=== PATIENT | male | born 1980 | race Hispanic/Latino ===

== ENCOUNTER 2017-08-05 15:08 | Emergency (ER) | payer SELFPAY ==
[2017-08-05 15:34] LABS: #Eosinphils 0.2 thou/uL (0.0-0.7); #Lymphocytes 2.1 thou/uL (1.20-3.40); #Monocytes 0.9 thou/uL (0.11-0.59); #Neutrophils 8.8 thou/uL (1.40-6.50); %Basophils 0.1 % (0.0-1.0); %Eosinophils 1.5 % (0.0-10.0); %Lymphocytes 17.2 % (21.0-51.0); %Monocytes 7.5 % (0.0-10.0); Hematocrit 41.7 % (42.0-52.0); Red Blood Cell (RBC) Count 4.18 mill/uL (4.70-6.10); White Blood Cell (WBC) Count 11.9 thou/uL (4.8-10.8)
[2017-08-05 15:52] LABS: Anion Gap 9 mmol/L (10-20); BUN (Urea Nitrogen) 8 mg/dL (8.9-20.6); Calc. Creatinine Clearance 0 mL/min (70-130); Calcium 9.5 mg/dL (7.8-10.44); Carbon Dioxide 28 mmol/L (22-29); Chloride 110 mmol/L (98-107); Estimated GFR-MDRD 74
[2017-08-05] MEDS ORDERED: Morphine 4 MG/ML VIAL ONE (16:45)
--- NOTE | 2017-08-05 17:03 | CT ---
CT FACE WITHOUT CONTRAST: 08/05/17 HISTORY: Injury. Trauma. Left facial swelling after hitting a wall. COMPARISON: None. FINDINGS: There are likely old nasal bone fractures bilaterally. Likely an old right lamina papyracea fracture. There is extensive mucosal soft tissue thickening in the left maxillary sinus. The bilateral central incisors are cracked with only roots remaining. The bilateral lateral incisors as well as canine teeth are missing. No orbital floor blowout fracture. The pterygoid plates, zygoma, zygomatic arch are all intact. Left periorbital soft tissue swelling. Orbits themselves are normal. Globes are normal. No retrobulbar hematoma. IMPRESSION: 1. Fractures of the bilateral central incisor maxillary teeth with only roots remaining. 2. Missing bilateral lateral incisors and canine teeth of the maxilla. 3. Left periorbital soft tissue swelling and contusion. 4. The alveolar bone of the maxilla has a small chip fracture, series 401, image 37 at the level of the left maxillary lateral incisor. 5. Likely old nasal bone fractures and right lamina papyracea fracture. POS: HOME
== END 2017-08-05 17:35 | disposition home or self-care (01) ==
LOC: ERS 15:08
DX: S02.5XXA Fracture of tooth (traumatic), initial encounter for closed fracture (principal); S00.83XA Contusion of other part of head, initial encounter; G20 Parkinson's disease; F17.210 Nicotine dependence, cigarettes, uncomplicated; W22.01XA Walked into wall, initial encounter
CPT/HCPCS: 36415; 70486; 80048; 85025; 96372; J2270

== ENCOUNTER 2017-12-24 04:56 | Emergency (ER) | payer SELFPAY ==
[2017-12-24 05:39] LABS: Lavender RECEIVED; Red RECEIVED
[2017-12-24] MEDS ORDERED: levETIRAcetam In NaCl (Iso-Os) 1,000 MG in Premix Bag 1 BAG IVPB SCH (05:45)
[2017-12-24 05:46] LABS: #Basophils 0.1 thou/uL (0.0-0.2); #Eosinphils 0.3 thou/uL (0.0-0.7); #Lymphocytes 2.8 thou/uL (1.20-3.40); #Monocytes 0.7 thou/uL (0.11-0.59); #Neutrophils 6.6 thou/uL (1.40-6.50); %Eosinophils 3.2 % (0.0-10.0); %Lymphocytes 26.3 % (21.0-51.0); %Monocytes 6.6 % (0.0-10.0); %Neutrophils 62.9 % (42.0-75.0); Hemoglobin 14.9 g/dL (14.0-18.0); Mean Corpuscular HGB CONC 34.8 g/dL (32.0-36.0); Mean Corpuscular Hemoglobin 32.9 pg (27.0-31.0); Mean Corpuscular Volume 94.4 fl (80.0-94.0); Mean Platelet Volume 9.7 fL (7.4-10.4); Platelet Count 138 thou/uL (130-400); RBC Distribution Width 12.2 % (11.5-14.5); Red Blood Cell (RBC) Count 4.52 mill/uL (4.70-6.10); White Blood Cell (WBC) Count 10.5 thou/uL (4.8-10.8)
[2017-12-24] MEDS ORDERED: Ketorolac Tromethamine 30 MG/ML VIAL ONE (05:53)
[2017-12-24 06:07] LABS: ALT (SGPT) 30 U/L (8-55); AST (SGOT) 14 U/L (5-34); Albumin 4.1 g/dL (3.5-5.0); Alkaline Phosphatase 85 U/L (40-150); Anion Gap 11 mmol/L (10-20); BUN (Urea Nitrogen) 15 mg/dL (8.9-20.6); Bilirubin, Total 0.6 mg/dL (0.2-1.2); CK (CPK) 235 U/L (30-200); Calc. Creatinine Clearance 0 mL/min (70-130); Calcium 8.7 mg/dL (7.8-10.44); Carbon Dioxide 21 mmol/L (22-29); Chloride 110 mmol/L (98-107); Estimated GFR-MDRD Greater than 90; Globulin 2.8 g/dL (2.4-3.5); Glucose 93 mg/dL (70-105); Magnesium 2.2 mg/dL (1.6-2.6); Potassium 3.6 mmol/L (3.5-5.1); Protein, Total 6.9 g/dL (6.0-8.3)
[2017-12-24 06:24] LABS: Sodium 138 mmol/L (136-145)
--- NOTE | 2017-12-24 13:39 | CT ---
PRELIMINARY REPORT/[facility]/EMERGENTY AFTER-HOURS PROCEDURE CT Head Without Intravenous Contrast EXAM DATE/TIME: Exam ordered 12/24/2017 5:58 AM CLINICAL HISTORY: 37 years old, male; Signs and symptoms; Weakness, extremity; Patient HX: 37 y/o m with presentation o f seizure. Pt reports that he is on 500mg keppra bid and forgot to take his pm dose. Pt states that kyrie horne was sleeping and woke up on the floor. He states "my dog woke me up" and reports that he normally had generalized tremors after he has a seizure. Pt reports pain at the left side of his head and denies any other complaints. Denies drug/etoh use. HX of parkinson's dz. TECHNIQUE: Axial computed tomography images of the head/brain without intravenous contrast. COMPARISON: No relevant prior studies available. FINDINGS: Brain: Normal. No hemorrhage. No significant white matter disease. No edema. Ventricles: Normal. No ventriculomegaly. Bones/joints: Normal. No acute fracture. Soft tissues: Normal. Sinuses: Unremarkable as visualized. No acute sinusitis. Mastoid air cells: Unremarkable as visualized. No mastoid effusion. IMPRESSION: No acute intracranial hemorrhage. Thank you for allowing us to participate in the care of your patient. Dictated and Authenticated by: Robert Long MD 12/24/2017 6:28 AM Central Time ([place] & [place]) FINAL REPORT EMERGENT AFTER HOURS NONCONTRAST CT HEAD: DATE: 12/24/17. HISTORY: Headache and seizure. COMPARISON: 11/10/16. IMPRESSION: 1. No acute intracranial abnormality is demonstrated. CT head is stable from prior exam. 2. Findings are in agreement with the preliminary report by [facility]. POS: [facility]
== END 2017-12-24 07:04 | disposition home or self-care (01) ==
LOC: ERS 04:56
DX: G40.909 Epilepsy, unspecified, not intractable, without status epilepticus (principal); Z91.14 Patient's other noncompliance with medication regimen; G20 Parkinson's disease; F17.210 Nicotine dependence, cigarettes, uncomplicated; Z71.6 Tobacco abuse counseling; Z79.899 Other long term (current) drug therapy
CPT/HCPCS: 36415; 70450; 80053; 82550; 83735; 85025; 96365; 96375; 99406; J1885; J1953

== ENCOUNTER 2018-03-16 08:09 | Outpatient (CLI) | payer OTHER ==
[2018-03-16] MEDS ORDERED: EPINEPHrine 1 MG/ML AMP ONE (08:50)
[2018-03-16] MEDS ORDERED: Iopamidol 300 61% 50 ML VIAL FS ONE (08:50)
[2018-03-16] MEDS ORDERED: Gadobenate Dimeglumine 529 MG/1 ML (20ML VIAL) ONE (08:50)
[2018-03-16] MEDS ORDERED: Lidocaine 1% PF 10 ML AMP ONE (08:50)
--- NOTE | 2018-03-16 12:58 | RAD ---
RIGHT SHOULDER ARTHROGRAM: HISTORY: Right shoulder pain. Internal derangement. FINDINGS: After explaining the procedure and answering all questions, the anterior aspect of the right shoulder was prepped and draped in the usual sterile fashion. Sterile technique, buffered local anesthesia, fluoroscopic guidance, and an anterior approach were used to carefully advance a 22 gauge spinal need le into the joint capsule, at the level of the humeral head. A total volume of a 10 mL liquid mixtur e containing normal saline, 1% Lidocaine, iodinated contrast, and small amounts of Gadolinium and epi nephrine were then instilled into the joint capsule, under fluoroscopic control. The needle was jesse manuel, and spot images were obtained. The patient tolerated the procedure well and was transferred to the MRI area in good condition for further imaging. FLUOROSCOPY TIME: 0.5 minutes. IMPRESSION: Technically successful right shoulder arthrogram, revealing a full-thickness rotator cuff tear. Post arthrogram MRI is pending. POS: [facility]
--- NOTE | 2018-03-16 15:14 | MRI ---
MRI RIGHT SHOULDER PERFORMED WITH CONTRAST ENHANCEMENT: HISTORY: Right shoulder pain. FINDINGS: There is good opacification of the joint space. There are some moderate AC joint hypertrophic change s, with a slightly laterally downsloping acromion. There is a full-thickness, partially-width supraspinatus tendon tear. This involves more of the ante rior aspect of the tendon. Some of the anterior-most articular-sided fibers are still intact, but th e tendon is overall retracted by approximately 9 mm, and the AP dimension of the full-thickness compo nent of this tear is approximately 7 to 8 mm. There appears to be a slightly more significant unders urface retraction of the articular-sided fibers. There are tendinopathy changes of the more posterio r fibers of the supraspinatus tendon. The infraspinatus appears to be intact. The subscapularis muscle and tendon are intact, and the biceps tendon appears to be in normal positio n within the bicipital groove. There is a small SLAP type lesion seen involving the posterior-superior labrum, and there does appear to be a sulcus present, but the contrast extends further posteriorly than would be typically seen wi th a sulcus. The inferior glenohumeral ligament is intact. IMPRESSION: 1. Full-thickness, partial-width, supraspinatus tendon tear. This appears to be an almost complete tear of the supraspinatus tendon. There appear to be a few bursal fibers still intact anteriorly, an d some of the posterior fibers appear very tendinopic but appear intact. 2. Small superior labrum anterior and posterior type tear of the posterior-superior labrum, which ap pears to be associated with a sublabral sulcus. POS: [facility]
== END 2018-03-16 08:10 | disposition home or self-care (01) ==
LOC: RAD 08:09
PROVIDERS: ATTEND Orthopaedic Surgery
DX: M25.511 Pain in right shoulder (principal); M75.101 Unspecified rotator cuff tear or rupture of right shoulder, not specified as traumatic
CPT/HCPCS: 23350

== ENCOUNTER 2018-08-26 01:21 | Emergency (ER) | payer SELFPAY ==
[2018-08-26] MEDS ORDERED: Ketorolac Tromethamine 30 MG/ML VIAL ONE (02:19)
== END 2018-08-26 02:40 | disposition home or self-care (01) ==
LOC: ERS 01:21
DX: K02.9 Dental caries, unspecified (principal); G20 Parkinson's disease; F17.210 Nicotine dependence, cigarettes, uncomplicated; Z79.899 Other long term (current) drug therapy
CPT/HCPCS: 96372; J1885

== ENCOUNTER 2018-08-31 01:37 | Emergency (ER) | payer SELFPAY ==
[2018-08-31 02:04] LABS: #Basophils 0.1 thou/uL (0.0-0.2); #Eosinphils 0.1 thou/uL (0.0-0.7); #Lymphocytes 2.4 thou/uL (1.20-3.40); #Monocytes 0.8 thou/uL (0.11-0.59); #Neutrophils 8.8 thou/uL (1.40-6.50); %Basophils 0.5 % (0.0-1.0); %Eosinophils 1.1 % (0.0-10.0); %Lymphocytes 19.5 % (21.0-51.0); %Monocytes 6.3 % (0.0-10.0); %Neutrophils 72.6 % (42.0-75.0); Hemoglobin 14.7 g/dL (14.0-18.0); Mean Corpuscular HGB CONC 33.6 g/dL (32.0-36.0); Mean Corpuscular Hemoglobin 31.5 pg (27.0-31.0); Mean Corpuscular Volume 93.9 fL (78.0-98.0); Mean Platelet Volume 9.7 fL (7.4-10.4); Platelet Count 151 thou/uL (130-400); RBC Distribution Width 13.2 % (11.5-14.5); Red Blood Cell (RBC) Count 4.67 mill/uL (4.70-6.10); White Blood Cell (WBC) Count 12.1 thou/uL (4.8-10.8)
[2018-08-31 02:26] LABS: ALT (SGPT) 31 U/L (8-55); AST (SGOT) 24 U/L (5-34); Alkaline Phosphatase 81 U/L (40-150); Anion Gap 13 mmol/L (10-20); BUN (Urea Nitrogen) 15 mg/dL (8.9-20.6); Bilirubin, Total 0.5 mg/dL (0.2-1.2); CK (CPK) 640 U/L (30-200); Calc. Creatinine Clearance 0 mL/min (70-130); Calcium 8.9 mg/dL (7.8-10.44); Carbon Dioxide 18 mmol/L (22-29); Chloride 113 mmol/L (98-107); Estimated GFR-MDRD 69; Globulin 2.8 g/dL (2.4-3.5); Glucose 96 mg/dL (70-105); Potassium 3.8 mmol/L (3.5-5.1); Protein, Total 6.8 g/dL (6.0-8.3); Sodium 140 mmol/L (136-145)
[2018-08-31 02:34] LABS: Alcohol Less than 10 mg/dL (Less than 10); Salicylate Less than 8.0 mg/dL (15.0-30.0)
[2018-08-31 02:36] LABS: Amphetamine Not Detected (NotDetected); Barbiturates Screen Not Detected (NotDetected); Benzodiazepine Screen Not Detected (NotDetected); Cocaine Metabolite Screen Detected (NotDetected); Medtox Control Line Valid? VALID (VALID); Medtox Reader # READER 4; Methadone Not Detected (NotDetected); Methamphetamine Not Detected (NotDetected); Opiate Screen Not Detected (NotDetected); Oxycodone Screen Not Detected (NotDetected); Phencyclidine (PCP) Not Detected (NotDetected); THC/Cannabinoid Screen Not Detected (NotDetected); Tricyclic Screen Not Detected (NotDetected)
--- NOTE | 2018-08-31 08:36 | RAD ---
ONE VIEW CHEST: COMPARISON: 03/24/2013. HISTORY: Pain. FINDINGS: Normal cardiac silhouette. The pulmonary vessels and hilum are normal. Costophrenic angles are danisha r. No consolidation or mass. No pneumothorax or osseous abnormalities. IMPRESSION: No acute cardiopulmonary process. POS: [facility]
--- NOTE | 2018-09-01 13:35 | EKG ---
Test Reason : Blood Pressure : / mmHG Vent. Rate : 083 BPM Atrial Rate : 083 BPM P-R Int : 110 ms QRS Dur : 084 ms QT Int : 368 ms P-R-T Axes : 026 049 049 degrees QTc Int : 432 ms Sinus rhythm with short LA Otherwise normal ECG Confirmed by JOSE LUIS LOPEZ, KHOI Gallagher ([id number]), order editor MATIAS PAUL ([id number]) on 09/01/2018 1:34:57 PM Referred By: JOSE LUIS Confirmed By:KHOI AMAYA MD
== END 2018-08-31 03:24 | disposition home or self-care (01) ==
LOC: ERS 01:37
DX: F14.10 Cocaine abuse, uncomplicated (principal); R07.9 Chest pain, unspecified; G20 Parkinson's disease; F17.210 Nicotine dependence, cigarettes, uncomplicated; Z79.899 Other long term (current) drug therapy
CPT/HCPCS: 71045; 80053; 80306; 80307; 82274; 82550; 84484; 85025; 93005

== ENCOUNTER 2018-12-05 13:36 | Emergency (ER) | payer SELFPAY ==
[2018-12-05 14:25] LABS: #Basophils 0.1 thou/uL (0.0-0.2); #Eosinphils 0.2 thou/uL (0.0-0.7); #Lymphocytes 2.2 thou/uL (1.20-3.40); #Monocytes 0.6 thou/uL (0.11-0.59); #Neutrophils 8.2 thou/uL (1.40-6.50); %Basophils 0.7 % (0.0-1.0); %Eosinophils 1.3 % (0.0-10.0); %Lymphocytes 19.3 % (21.0-51.0); %Monocytes 5.7 % (0.0-10.0); Hemoglobin 15.1 g/dL (14.0-18.0); Mean Corpuscular HGB CONC 34.3 g/dL (32.0-36.0); Mean Corpuscular Hemoglobin 32.2 pg (27.0-31.0); Mean Platelet Volume 9.9 fL (7.4-10.4); Platelet Count 159 thou/uL (130-400); RBC Distribution Width 12.3 % (11.5-14.5); Red Blood Cell (RBC) Count 4.68 mill/uL (4.70-6.10); White Blood Cell (WBC) Count 11.3 thou/uL (4.8-10.8)
--- NOTE | 2018-12-05 14:27 | RAD ---
EXAM: CHEST ONE VIEW HISTORY: Chest pain COMPARISON: 08/31/2018 FINDINGS: The cardiac silhouette and pulmonary vasculature is within normal limits. The lungs are clear. The os seous structures are intact. There has been no interval change from prior exam. IMPRESSION: No acute cardiopulmonary process.
[2018-12-05 14:48] LABS: ALT (SGPT) 13 U/L (8-55); AST (SGOT) 14 U/L (5-34); Alkaline Phosphatase 98 U/L (40-150); Anion Gap 11 mmol/L (10-20); BUN (Urea Nitrogen) 11 mg/dL (8.9-20.6); Bilirubin, Total 0.5 mg/dL (0.2-1.2); Calc. Creatinine Clearance 0 mL/min (70-130); Calcium 9.4 mg/dL (7.8-10.44); Carbon Dioxide 23 mmol/L (22-29); Chloride 109 mmol/L (98-107); Estimated GFR-MDRD Greater than 90; Globulin 2.8 g/dL (2.4-3.5); Glucose 88 mg/dL (70-105); Lipase 14 U/L (8-78); Potassium 3.8 mmol/L (3.5-5.1); Protein, Total 6.8 g/dL (6.0-8.3); Sodium 139 mmol/L (136-145)
== END 2018-12-05 15:48 | disposition home or self-care (01) ==
LOC: ERS 13:36
DX: R07.9 Chest pain, unspecified (principal); J06.9 Acute upper respiratory infection, unspecified; G20 Parkinson's disease; F17.210 Nicotine dependence, cigarettes, uncomplicated
CPT/HCPCS: 71045; 80053; 83690; 84484; 85025; 93005

== ENCOUNTER 2019-02-27 17:08 | Emergency (ER) | payer SELFPAY | END 2019-02-27 19:27 | disposition home or self-care (01) | LOC: ERS 17:08 | DX: K04.7 Periapical abscess without sinus (principal); G20 Parkinson's disease; F17.210 Nicotine dependence, cigarettes, uncomplicated | CPT/HCPCS: 99283 ==

== ENCOUNTER 2019-03-11 08:21 | Emergency (ER) | payer SELFPAY ==
[2019-03-11] MEDS ORDERED: diphenhydrAMINE 50 MG CAP ONE (08:34)
[2019-03-11] MEDS ORDERED: predniSONE 20 MG TAB ONE (08:34)
[2019-03-11 09:03] LABS: #Basophils 0.1 thou/uL (0.0-0.2); #Eosinphils 0.1 thou/uL (0.0-0.7); #Lymphocytes 2.8 thou/uL (1.20-3.40); #Monocytes 0.6 thou/uL (0.11-0.59); #Neutrophils 5.6 thou/uL (1.40-6.50); %Basophils 0.9 % (0.0-1.0); %Eosinophils 0.7 % (0.0-10.0); %Lymphocytes 30.6 % (21.0-51.0); %Monocytes 6.5 % (0.0-10.0); %Neutrophils 61.3 % (42.0-75.0); Hemoglobin 15.3 g/dL (14.0-18.0); Mean Corpuscular HGB CONC 33.8 g/dL (32.0-36.0); Mean Corpuscular Hemoglobin 32.1 pg (27.0-31.0); Mean Corpuscular Volume 94.9 fL (78.0-98.0); Mean Platelet Volume 9.3 fL (7.4-10.4); Platelet Count 163 thou/uL (130-400); RBC Distribution Width 13.1 % (11.5-14.5); Red Blood Cell (RBC) Count 4.76 mill/uL (4.70-6.10); White Blood Cell (WBC) Count 9.2 thou/uL (4.8-10.8)
[2019-03-11 09:32] LABS: ALT (SGPT) 16 U/L (8-55); AST (SGOT) 14 U/L (5-34); Alkaline Phosphatase 89 U/L (40-150); Anion Gap 14 mmol/L (10-20); BUN (Urea Nitrogen) 10 mg/dL (8.9-20.6); Bilirubin, Total 0.2 mg/dL (0.2-1.2); Calc. Creatinine Clearance 0 mL/min (70-130); Carbon Dioxide 19 mmol/L (22-29); Chloride 112 mmol/L (98-107); Estimated GFR-MDRD Greater than 90; Globulin 2.8 g/dL (2.4-3.5); Glucose 88 mg/dL (70-105); Potassium 3.9 mmol/L (3.5-5.1); Protein, Total 6.8 g/dL (6.0-8.3); Sodium 141 mmol/L (136-145)
== END 2019-03-11 09:50 | disposition home or self-care (01) ==
LOC: ERS 08:21
DX: L50.0 Allergic urticaria (principal); G20 Parkinson's disease; F17.210 Nicotine dependence, cigarettes, uncomplicated; Z79.899 Other long term (current) drug therapy
CPT/HCPCS: 36415; 80053; 85025; 99283; J7512; Q0163

== ENCOUNTER 2019-03-14 13:19 | Emergency (ER) | payer SELFPAY | END 2019-03-14 14:02 | disposition home or self-care (01) | LOC: ERS 13:19 | DX: R21 Rash and other nonspecific skin eruption (principal); R22.0 Localized swelling, mass and lump, head; T36.8X5A Adverse effect of other systemic antibiotics, initial encounter; F31.9 Bipolar disorder, unspecified; F20.9 Schizophrenia, unspecified; F90.9 Attention-deficit hyperactivity disorder, unspecified type; F17.210 Nicotine dependence, cigarettes, uncomplicated; Z79.899 Other long term (current) drug therapy | CPT/HCPCS: 99283 ==

== ENCOUNTER 2019-06-02 18:01 | Inpatient (IN) | payer SELFPAY ==
[2019-06-02] MEDS ORDERED: EPINEPHrine 1 MG/ML AMP ONE (18:28)
[2019-06-02] MEDS ORDERED: Ondansetron PF 4 MG/2 ML Vial ONE (18:32)
[2019-06-02] MEDS ORDERED: methylPREDNISolone Sod Succ/PF 125 MG/2 ML VIAL ONE (18:32)
[2019-06-02] MEDS ORDERED: diphenhydrAMINE 50 MG/ML VIAL ONE (18:32)
[2019-06-02] MEDS ORDERED: Famotidine/PF 20 mg/2ml Vial ONE (18:32)
[2019-06-02] MEDS ORDERED: Lorazepam 2 MG/ML VIAL ONE (18:38)
[2019-06-02 19:10] LABS: #Basophils 0.1 thou/uL (0.0-0.2); #Eosinphils 0.1 thou/uL (0.0-0.7); #Lymphocytes 2.7 thou/uL (1.20-3.40); #Monocytes 0.8 thou/uL (0.11-0.59); #Neutrophils 9.3 thou/uL (1.40-6.50); %Basophils 0.6 % (0.0-1.0); %Eosinophils 0.8 % (0.0-10.0); %Monocytes 6.3 % (0.0-10.0); %Neutrophils 71.3 % (42.0-75.0); Hemoglobin 18.4 g/dL (14.0-18.0); Mean Corpuscular HGB CONC 33.7 g/dL (32.0-36.0); Mean Corpuscular Hemoglobin 31.6 pg (27.0-31.0); Mean Corpuscular Volume 93.6 fL (78.0-98.0); Mean Platelet Volume 11.5 fL (7.4-10.4); Platelet Count 186 thou/uL (130-400); RBC Distribution Width 12.5 % (11.5-14.5); Red Blood Cell (RBC) Count 5.81 mill/uL (4.70-6.10)
[2019-06-02 19:28] LABS: ALT (SGPT) 22 U/L (8-55); AST (SGOT) 20 U/L (5-34); Albumin 4.3 g/dL (3.5-5.0); Alkaline Phosphatase 94 U/L (40-110); Anion Gap 20 mmol/L (10-20); BUN (Urea Nitrogen) 14 mg/dL (8.9-20.6); Bilirubin, Total 0.5 mg/dL (0.2-1.2); Calc. Creatinine Clearance 0 mL/min (70-130); Calcium 9.7 mg/dL (7.8-10.44); Carbon Dioxide 20 mmol/L (22-29); Chloride 106 mmol/L (98-107); Estimated GFR-MDRD 58; Globulin 2.7 g/dL (2.4-3.5); Glucose 133 mg/dL (70-105); Potassium 3.5 mmol/L (3.5-5.1); Sodium 142 mmol/L (136-145)
--- NOTE | 2019-06-02 19:36 | RAD ---
RADIOGRAPH CHEST 1 VIEW: DATE: 06/02/2019 HISTORY: 39-year-old male with dyspnea FINDINGS: There are no airspace densities, pulmonary edema, pneumothorax, or cardiomegaly. The lateral costophr enic angles are sharp. IMPRESSION: No acute cardiopulmonary findings.
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
[2019-06-02] MEDS ORDERED: Bacteriostatic Water 30 ML VIAL FS PRN (20:48)
[2019-06-02] MEDS ORDERED: Sodium Chloride 0.9% 1,000 ML IV SCH (21:05)
[2019-06-02] MEDS: Sodium Chloride 0.9% 1,000 ML IV SCH (21:44)
[2019-06-02 21:49] VITALS: BMI 26.9
[2019-06-03] MEDS ORDERED: diphenhydrAMINE 50 MG/ML VIAL ONE (00:22)
[2019-06-03] MEDS: diphenhydrAMINE 50 MG/ML VIAL IVP SCH ×2 (00:23→05:06)
[2019-06-03] MEDS: Sodium Chloride 0.9% 1,000 ML IV SCH (02:37)
[2019-06-03 05:16] LABS: #Lymphocytes 0.6 thou/uL (1.20-3.40); #Monocytes 0.1 thou/uL (0.11-0.59); #Neutrophils 9.5 thou/uL (1.40-6.50); %Eosinophils 0.2 % (0.0-10.0); %Lymphocytes 5.6 % (21.0-51.0); %Monocytes 1.4 % (0.0-10.0); %Neutrophils 92.8 % (42.0-75.0); Hemoglobin 14.9 g/dL (14.0-18.0); Mean Corpuscular HGB CONC 33.9 g/dL (32.0-36.0); Mean Corpuscular Hemoglobin 32.1 pg (27.0-31.0); Mean Corpuscular Volume 94.7 fL (78.0-98.0); Mean Platelet Volume 10.6 fL (7.4-10.4); Platelet Count 122 thou/uL (130-400); RBC Distribution Width 12.5 % (11.5-14.5); Red Blood Cell (RBC) Count 4.63 mill/uL (4.70-6.10); White Blood Cell (WBC) Count 10.2 thou/uL (4.8-10.8)
[2019-06-03 05:34] LABS: Anion Gap 11 mmol/L (10-20); BUN (Urea Nitrogen) 12 mg/dL (8.9-20.6); Calc. Creatinine Clearance 110 mL/min (70-130); Calcium 8.8 mg/dL (7.8-10.44); Carbon Dioxide 20 mmol/L (22-29); Chloride 110 mmol/L (98-107); Estimated GFR-MDRD 82; Glucose 153 mg/dL (70-105); Potassium 4.9 mmol/L (3.5-5.1); Sodium 136 mmol/L (136-145)
--- NOTE | 2019-06-03 05:49 | PDOC.FM ---
- Subjective Subjective: Pt is doing very well this morning, no acute events overnight. States swelling, dysphagia, hives, and itching as all completely resolved. No CP, SOB, n/v, d/c, fever/chills. Spoke regarding the importance of avoiding NSAIDs particularly Motrin, and need to have Epi Pen at home for emergency use. Awaiting CM assistance with funding. - Objective MAR Reviewed: Yes Vital Signs & Weight: Vital Signs (12 hours) Temp Pulse Resp BP BP BP Pulse Ox 06/03/19 05:18 97.7 F 70 16 104/63 100 06/03/19 02:05 97.6 F 69 20 105/51 L 100 06/03/19 01:03 97.8 F 72 22 H 101/61 100 06/03/19 00:32 69 21 H 106/68 100 06/02/19 23:39 100 06/02/19 23:37 98 F 67 24 H 99/56 L 100 06/02/19 21:49 97.9 F 81 20 98/50 L 98 Weight Weight 79.333 kg Result Diagrams: 06/03/19 04:44 06/03/19 04:44 EKG Reviewed by me: Yes (Tele: Sinus, no acute events) Phys Exam - Physical Examination Constitutional: NAD HEENT: PERRLA, moist MMs Neck: supple Respiratory: no wheezing, no rales, no rhonchi, clear to auscultation bilateral Cardiovascular: RRR, no significant murmur, no rub Gastrointestinal: soft, non-tender, no distention, positive bowel sounds Musculoskeletal: no edema, pulses present Neurological: non-focal Psychiatric: normal affect, A&O x 3 Skin: no rash Dx/Plan (1) Anaphylaxis Code(s): T78.2XXA - ANAPHYLACTIC SHOCK, UNSPECIFIED, INITIAL ENCOUNTER Status : Resolved (2) NERY (acute kidney injury) Code(s): N17.9 - ACUTE KIDNEY FAILURE, UNSPECIFIED Status: Resolved (3) LIZABETH (generalized anxiety disorder) Code(s): F41.1 - GENERALIZED ANXIETY DISORDER Status: Chronic (4) MDD (major depressive disorder) Code(s): F32.9 - MAJOR DEPRESSIVE DISORDER, SINGLE EPISODE, UNSPECIFIED Status : Chronic (5) Schizophrenia Code(s): F20.9 - SCHIZOPHRENIA, UNSPECIFIED Status: Chronic (6) Tobacco abuse Code(s): Z72.0 - TOBACCO USE Status: Chronic - Plan Plan: 39 y/o M with h/o Schizophrenia, bipolar, anxiety, MDD, and seizure d/o admitted for further treatment and evaluation of Anaphylaxis. # Acute Hypoxic Respiratory Failure 2/2 Anaphylaxis, resolved - anaphylaxis most likely 2/2 ibuprofen, possibly shrimp, history of allergic rxn in past to Motrin but states he took anyways - Initially on BiPap, weaned to NC and now to RA, satting well and VSS - D/c steriods and Benadryl - D/C IVF, encourage po hydration - Epinephrine prn - Pt has been seen several times for anaphylaxis and has not filled his epi pen prescription. Placed case management consult for assistance in epi pen funding. Discussed importance of NSAID avoidance and obtaining EpiPen # NERY, resolved - Cr 1.38 -> 1.02 post IVF - D/C IVF, encourage PO intake # Hx of Schizophrenia, Bipolar, Anxiety, MDD - Pt under the care of [facility] - Home medications are uncertain at this time, other than Latuda. - Restart Latuda, Mediations to be reconciled. Pt states he will obtain home med list this morning. Will restart home meds once reconciliation complete. # Tobacco use d/o - Pt counseled on cessation of cigarettes - Smokes 1.5 ppd for 6 years. # Leukocytosis, resolved - WBC 13.0, with 80% neutrophils downtrended to 10 - Influenza negative, VSS, cont to monitor # Headache - Most likely tension NELSON, throbbing, band distribution - Will monitor for improvement, Tylenol prn #Acid Reflux - Tums prn and Pepcid BID Code Status: Full Code DVT ppx: SCD's Diet: Regular Dispo: Pt stable, admitted for acute hypoxic respiratory failure 2/2 anaphylaxis now resolved. CM for assistance with Epi pen funding, discharge later today. Addendum - Attending - Attending Attestation Date/Time: 06/03/19 [id number] I personally evaluated the patient and discussed the management with Dr. Abisai Patel I agree with the History, Examination, Assessment and Plan documented above with any addition or exceptions noted below.\ Patient and significant other counseled regard dangers of continued exposure to Ibuprofen and went through laundry list of brands to avoid he endorses understanding and danger of repeated exposure including . Discharge physician will arrange for epinephrine pen prior to dismissal. Patient and significant other aware of proper use of epipen and indications to use.
[2019-06-03] MEDS ORDERED: Acetaminophen 325 MG TAB PO PRN (08:48)
[2019-06-03] MEDS ORDERED: diphenhydrAMINE 50 MG CAP PO PRN (08:49)
[2019-06-03] MEDS ORDERED: Calcium Carbonate 500 MG ChewTAB PO PRN (08:50)
[2019-06-03] MEDS ORDERED: methylPREDNISolone Sod Succ/PF 125 MG/2 ML VIAL IVP SCH (09:00)
[2019-06-03] MEDS ORDERED: Acetaminophen 325 MG TAB PO SCH (09:00)
[2019-06-03] MEDS ORDERED: Famotidine 20 MG TAB PO SCH (09:00)
[2019-06-03 12:09] VITALS: BP 107/55; TEMP 98.2
[2019-06-03] MEDS ORDERED: Lurasidone HCl 40 MG TABLET PO SCH (21:00)
[2019-06-03] MEDS ORDERED: FLU VACC QS2019-20(6MOS UP)/PF 60 MCG/0.5 ML SYRINGE IM ONE (21:00)
--- NOTE | 2019-06-04 13:43 | DIS ---
DATE OF ADMISSION: 06/02/2019 DATE OF DISCHARGE: 06/03/2019 RESIDENT: Flip Patel MD. ADMITTING ATTENDING: Jennifer Colón MD. DISCHARGE ATTENDING: Jamison Kidd MD CONSULTS: None. PROCEDURES: Chest x-ray on 06/02/2019, demonstrating no acute cardiopulmonary finding. PRIMARY DIAGNOSES: 1. Acute hypoxic respiratory failure secondary to anaphylaxis, resolved. 2. Acute kidney injury, resolved. SECONDARY DIAGNOSES: 1. History of schizophrenia, bipolar, anxiety, major depressive disorder. 2. Tobacco use disorder. 3. Leukocytosis, resolved. 4. Headache. 5. Acid reflux. DISCHARGE MEDICATIONS: 1. EpiPen use as directed p.r.n. anaphylaxis. 2. Epinephrine 1 mg/10 mL syringe injected 0.3 mg intramuscularly as directed p.r.n. anaphylaxis. 3. Dilantin 100 mg p.o. daily. 4. Latuda 20 mg p.o. q.p.m. 5. Tramadol 50 mg p.o. q.6 hours. 6. Hydroxyzine 25 mg p.o. q.i.d. p.r.n. 7. Trazodone 150 mg p.o. at bedtime. 8. Prazosin 2 mg p.o. q.p.m. 9. Keppra 1000 mg p.o. b.i.d. DISCONTINUED MEDICATIONS: None. SIGNIFICANT LABORATORY DATA: White blood cell count of 13.0, trended down to 10.2; hemoglobin 14.9; platelets 122. Creatinine initially 1.38, trended down to 1.02. HISTORY OF PRESENT ILLNESS AND HOSPITAL COURSE: The patient is a 39-year-old male with past medical history of schizophrenia, bipolar, anxiety, major depressive disorder, and previous anaphylaxis response, who came to the ED with a sudden swelling of his lips and throat. The patient stated that he woke up this morning, feeling body joint aches and fever. He took ibuprofen at about 16:00 and ate a soup of shrimp at about 17:00. At around 17:30, he reported that he started having swelling of his lips that was then spread to his throat, causing shortness of breath. The patient was then very fearful. He broke out into hives on his back and upper extremities and felt itchy all over causing himself to bleed from scratching on the skin. The patient was then transferred to the ED. The patient stated that he had a very similar, however, less severe reaction to Advil, which he had taken about 2 months ago and that was treated at [facility] and the patient did not require any hospitalization at that time. In the ED, the patient was given epinephrine, Solu-Medrol, Benadryl, Pepcid, 1 L fluid bolus, and started on BiPAP. The patient's blood pressure was initially 60/40 with this, however, improved to 102/64 upon admission. His heart rate was initially 130 and this reduced to 103. The patient was started on BiPAP, weaned off slowly and by the time, the primary care team had evaluated the patient. The patient was saturating 100% on 3 L nasal cannula. The patient's initial lab work was unremarkable other than a white count of 13.0 and a creatinine of 1.38. The patient was then admitted for acute anaphylaxis leading to acute hypoxic respiratory failure. Once on the floor, the patient was continued on Benadryl and IV steroids. The patient was given p.r.n. epinephrine, however, did not require any. The patient was started on 150 mL/hour maintenance IV fluids. The patient's O2 was continued to be weaned to the point of saturating well on room air, not requiring any supplemental O2. The patient stated that he had been given a prescription for EpiPen in the past; however, does not afford it. Thus, case management was consulted for assistance. The patient's home medications were restarted for chronic medical condition. Overnight, the patient did well, did not have any acute events. His morning labs showed resolution of his NERY. His vitals remained stable. He was saturating well on room air. The patient's IV fluids were then discontinued. His scheduled Benadryl and steroids were also discontinued. The patient was given p.r.n. hydroxyzine for any itching. The patient was then stable and ready for discharge. An extensive and complete discussion was had with the patient and at bedside regarding his anaphylaxis response to NSAIDs. The patient stated that he had eaten seafood many times in the past and not had any reaction similar to this. Thus, the allergy was less likely to be seafood related and more likely due to his ibuprofen. The patient stated that he has had previous reactions in the past where his hand and feet became swollen with ibuprofen. However, he decided to take the medication earlier anyway. It was discussed extensively. The patient should avoid all NSAIDs including, but not limited to, ibuprofen, Motrin, Aleve, and Advil, and this is discussed extensively with the patient including the need to check all labels of [id number] medications and consult with the pharmacy prior to taking them. The patient also discussed that he needed an EpiPen at home for any similar reactions as this could be life-threatening. The patient stated he cannot afford EpiPen. Case Management was consulted, who stated they did not have any financial assistance other than discount cards and this would still have the cost being over 150 dollars. The patient's pharmacy was called, who recommended giving a prefilled syringe of epinephrine with careful instructions of injection. Thus, prescription was sent in and pharmacy told to discuss injection techniques with the patient. The complete discharge plan was discussed with the patient and at discharge including need for establishment with a primary care provider. Resources were given as well as also need to follow up with an cord splicer for formal allergy testing. The patient and voiced agreement and understanding of the discharge plan as well as appropriate followup and the need to avoid all NSAIDs at this time. All questions were answered appropriately. DISPOSITION: Stable. DISCHARGE INSTRUCTIONS: 1. Location: Home. 2. Diet: Regular as tolerated. 3. Activity: As tolerated. 4. Followup: The patient is to follow up with primary care physician within 7 days of discharge as well as cord splicer followup in the future. Job ID: [id number] MTDD
== END 2019-06-03 16:22 | disposition home or self-care (01) | DRG 915 ==
LOC: ERS 18:01 → ERHOLD 20:49 → 2NO 06-03 02:05
PROVIDERS: ADMIT Family Medicine; ATTEND Family Medicine
DX: T88.6XXA Anaphylactic reaction due to adverse effect of correct drug or medicament properly administered, initial encounter (principal); J96.01 Acute respiratory failure with hypoxia; N17.9 Acute kidney failure, unspecified; F41.1 Generalized anxiety disorder; F20.9 Schizophrenia, unspecified; G40.909 Epilepsy, unspecified, not intractable, without status epilepticus; T39.315A Adverse effect of propionic acid derivatives, initial encounter; F17.210 Nicotine dependence, cigarettes, uncomplicated; K21.9 Gastro-esophageal reflux disease without esophagitis; D72.829 Elevated white blood cell count, unspecified; F32.9 Major depressive disorder, single episode, unspecified; F31.9 Bipolar disorder, unspecified; D75.1 Secondary polycythemia
CPT/HCPCS: 36415; 71045; 80048; 80053; 85025; 87804; 93005; 94660; 96361; 96372; 96374; 96375; J0171; J1200; J2060; J2405; J2930; S0028

== ENCOUNTER 2019-06-04 12:18 | Emergency (ER) | payer SELFPAY ==
[2019-06-04] MEDS ORDERED: methylPREDNISolone Sod Succ/PF 125 MG/2 ML VIAL ONE (12:33)
[2019-06-04] MEDS ORDERED: diphenhydrAMINE 50 MG/ML VIAL ONE (12:33)
[2019-06-04] MEDS ORDERED: Famotidine/PF 20 mg/2ml Vial ONE (12:33)
[2019-06-04] MEDS ORDERED: EPINEPHrine 1 MG/ML AMP ONE (12:38)
[2019-06-04] MEDS ORDERED: Albuterol Sulfate 2.5 mg/0.5 ml Neb ONE (14:31)
[2019-06-04] MEDS ORDERED: Albuterol Sulfate 1.25 MG/3 ML NEB ONE (14:31)
== END 2019-06-04 15:00 | disposition home or self-care (01) ==
LOC: ERS 12:18
DX: T78.40XA Allergy, unspecified, initial encounter (principal); F31.9 Bipolar disorder, unspecified; F20.9 Schizophrenia, unspecified; F90.9 Attention-deficit hyperactivity disorder, unspecified type; F17.210 Nicotine dependence, cigarettes, uncomplicated; G20 Parkinson's disease; Z79.899 Other long term (current) drug therapy
CPT/HCPCS: 93005; 96361; 96372; 96374; 96375; J0171; J0500; J1200; J2930; J7611; S0028

== ENCOUNTER 2020-09-04 15:40 | Outpatient (CLI) | payer OTHER ==
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
--- NOTE | 2020-09-04 16:12 | RAD ---
Exam:4 views right knee HISTORY: Posttraumatic osteoarthritis. Lateral pain COMPARISON: None FINDINGS: Joint spaces are preserved. No fracture or malalignment. No significant joint fluid. Possib le incidental small osteochondroma involving the distal medial femur. Correlate clinically. IMPRESSION: 1. No fracture 2. Possible osteochondroma. If the patient is experiencing pain in this region, consider MRI to evalu ate for possible malignancy can't for conversion.
== END 2020-09-04 15:41 | disposition home or self-care (01) ==
LOC: BICRAD 15:40
PROVIDERS: ATTEND Obstetrics & Gynecology
DX: M17.32 Unilateral post-traumatic osteoarthritis, left knee (principal)

== ENCOUNTER 2020-12-29 04:59 | Emergency (ER) | payer OTHER | END 2020-12-29 06:06 | disposition home or self-care (01) | LOC: ERS 04:59 | DX: G40.909 Epilepsy, unspecified, not intractable, without status epilepticus (principal); G20 Parkinson's disease; F17.210 Nicotine dependence, cigarettes, uncomplicated; Z79.899 Other long term (current) drug therapy | CPT/HCPCS: 36415; 80177; 93005; 99284 ==

== ENCOUNTER 2022-01-09 05:27 | Emergency (ER) | payer OTHER | END 2022-01-09 05:55 | disposition left against medical advice (07) | LOC: ERS 05:27 | DX: S06.9X9A Unspecified intracranial injury with loss of consciousness of unspecified duration, initial encounter (principal); S01.21XA Laceration without foreign body of nose, initial encounter; F17.210 Nicotine dependence, cigarettes, uncomplicated; Y04.0XXA Assault by unarmed brawl or fight, initial encounter | CPT/HCPCS: 99284 ==

== ENCOUNTER 2022-02-12 02:52 | Emergency (ER) | payer OTHER ==
[2022-02-12] MEDS ORDERED: Lidocaine 1% PF 5 ML VIAL ONE (03:37)
== END 2022-02-12 04:50 | disposition home or self-care (01) ==
LOC: ERS 02:52
DX: S81.812A Laceration without foreign body, left lower leg, initial encounter (principal); G20 Parkinson's disease; F17.210 Nicotine dependence, cigarettes, uncomplicated; W22.8XXA Striking against or struck by other objects, initial encounter
CPT/HCPCS: 12001

== ENCOUNTER 2022-03-04 21:10 | Inpatient (IN) | payer OTHER ==
[2022-03-04] MEDS ORDERED: Piperacillin/Tazobactam 3.375 GM VIAL ONE (21:35)
[2022-03-04] MEDS ORDERED: Morphine 4 MG/ML VIAL ONE (21:35)
[2022-03-04] MEDS ORDERED: Vancomycin 1 GM/200 ML BAG ONE (21:36)
[2022-03-04 21:58] LABS: ALT (SGPT) 84 U/L (8-55); AST (SGOT) 40 U/L (5-34); Albumin 4.3 g/dL (3.5-5.0); Alkaline Phosphatase 79 U/L (40-110); Anion Gap 13 mmol/L (10-20); BUN (Urea Nitrogen) 15 mg/dL (8.9-20.6); Calc. Creatinine Clearance 0 mL/min (70-130); Calcium 9.4 mg/dL (7.8-10.44); Carbon Dioxide 22 mmol/L (22-29); Chloride 105 mmol/L (98-107); Estimated GFR 76; Globulin 3.1 g/dL (2.4-3.5); Glucose 142 mg/dL (70-105); Hemoglobin 16.1 g/dL (14.0-18.0); Mean Corpuscular HGB CONC 34.1 g/dL (32.0-36.0); Mean Corpuscular Hemoglobin 33.5 pg (27.0-31.0); Mean Corpuscular Volume 98.2 fL (78.0-98.0); Mean Platelet Volume 10.1 fL (7.4-10.4); Platelet Count 121 thou/uL (130-400); Potassium 4.2 mmol/L (3.5-5.1); Protein, Total 7.4 g/dL (6.0-8.3); RBC Distribution Width 12.1 % (11.5-14.5); Sodium 136 mmol/L (136-145); White Blood Cell (WBC) Count 22.5 thou/uL (4.8-10.8)
[2022-03-04 22:28] LABS: Anisocytosis SLIGHT = 6-15 cells (100X) (0-5/hpf); Band 12 % (5-11); Lymphocytes 15 % (21-51); MDiff Complete? YES; Macrocytosis SLIGHT = 6-15 cells (100X) (0-5/hpf); Monocytes 2 % (0-10); Neutrophil 71 % (42-75); Platelet Morphology Comment Appears Decreased
[2022-03-04] MEDS: Nicotine 21 MG PATCH TD SCH (23:49)
[2022-03-04] MEDS ORDERED: HYDROcodone/Acetaminophen 5/325 mg Tablet PO SCH (23:59)
[2022-03-04] MEDS ORDERED: Mirtazapine 15 MG TAB PO SCH (23:59)
[2022-03-05 00:09] VITALS: BMI 31.8
[2022-03-05 01:00] LABS: Lactic Acid 1.4 mmol/L (0.5-2.2)
[2022-03-05] MEDS: Piperacillin/Tazobactam 3.375 GM in Sodium Chloride 0.9% 100 ML IVPB SCH ×3 (02:03→17:46)
[2022-03-05] MEDS: Lactated Ringer's 1,000 ML IV SCH ×3 (02:03→17:46)
[2022-03-05 07:19] LABS: #Eosinphils 0.1 thou/uL (0.0-0.7); #Lymphocytes 2.7 thou/uL (1.20-3.40); #Monocytes 1.1 thou/uL (0.11-0.59); #Neutrophils 14.1 thou/uL (1.40-6.50); %Basophils 0.2 % (0.0-1.0); %Eosinophils 0.6 % (0.0-10.0); %Lymphocytes 14.8 % (21.0-51.0); %Monocytes 5.9 % (0.0-10.0); %Neutrophils 78.5 % (42.0-75.0); Hemoglobin 14.7 g/dL (14.0-18.0); Mean Corpuscular Hemoglobin 33.8 pg (27.0-31.0); Mean Corpuscular Volume 99.4 fL (78.0-98.0); Mean Platelet Volume 10.7 fL (7.4-10.4); Platelet Count 105 thou/uL (130-400); Red Blood Cell (RBC) Count 4.35 mill/uL (4.70-6.10)
[2022-03-05 07:34] LABS: ALT (SGPT) 58 U/L (8-55); AST (SGOT) 25 U/L (5-34); Albumin 3.7 g/dL (3.5-5.0); Alkaline Phosphatase 69 U/L (40-110); Anion Gap 16 mmol/L (10-20); BUN (Urea Nitrogen) 12 mg/dL (8.9-20.6); Bilirubin, Total 0.9 mg/dL (0.2-1.2); Calc. Creatinine Clearance 103 mL/min (70-130); Calcium 8.8 mg/dL (7.8-10.44); Carbon Dioxide 20 mmol/L (22-29); Chloride 104 mmol/L (98-107); Estimated GFR 85; Globulin 2.6 g/dL (2.4-3.5); Glucose 116 mg/dL (70-105); Potassium 3.8 mmol/L (3.5-5.1); Protein, Total 6.3 g/dL (6.0-8.3); Sodium 136 mmol/L (136-145)
[2022-03-05] MEDS: levETIRAcetam 500 MG TAB PO SCH ×2 (08:41→20:38)
[2022-03-05] MEDS: Benztropine 1 MG TAB PO SCH (08:41)
[2022-03-05] MEDS: Enoxaparin Sodium 40 MG/0.4 ML SYRINGE SC SCH (08:41)
[2022-03-05] MEDS: VANCOMYCIN 1.25 GM/250 ML BAG 1.25 GM in Premix Bag 1 BAG IVPB SCH ×2 (08:42→22:55)
[2022-03-05] MEDS ORDERED: Vancomycin 1.5 GRAM/300 ML BAG 1.5 GM in Premix Bag 1 BAG IVPB SCH (09:00)
[2022-03-05] MEDS: Acetaminophen 325 MG TAB PO PRN (10:59)
[2022-03-05] MEDS ORDERED: HYDROcodone/Acetaminophen 5/325 mg Tablet PO SCH (13:15)
[2022-03-05 14:10] LABS: Hemoglobin A1c 5.5 % (4.0-6.0)
[2022-03-05] MEDS: Mirtazapine 15 MG TAB PO SCH (20:37)
[2022-03-05] MEDS: HYDROcodone/Acetaminophen 5/325 mg Tablet PO SCH (20:39)
[2022-03-06] MEDS: Nicotine 21 MG PATCH TD SCH ×2 (00:22→23:21)
[2022-03-06] MEDS: Lactated Ringer's 1,000 ML IV SCH (02:58)
[2022-03-06] MEDS: Piperacillin/Tazobactam 3.375 GM in Sodium Chloride 0.9% 100 ML IVPB SCH ×3 (03:00→23:21)
[2022-03-06 08:16] LABS: Vancomycin, Trough 13.4 ug/mL
[2022-03-06 08:36] LABS: #Eosinphils 0.2 thou/uL (0.0-0.7); #Lymphocytes 2.3 thou/uL (1.20-3.40); #Monocytes 0.9 thou/uL (0.11-0.59); #Neutrophils 11.3 thou/uL (1.40-6.50); %Basophils 0.1 % (0.0-1.0); %Eosinophils 1.1 % (0.0-10.0); %Lymphocytes 15.9 % (21.0-51.0); %Monocytes 6.2 % (0.0-10.0); %Neutrophils 76.8 % (42.0-75.0); Hemoglobin 14.5 g/dL (14.0-18.0); Mean Corpuscular HGB CONC 33.6 g/dL (32.0-36.0); Mean Corpuscular Hemoglobin 33.7 pg (27.0-31.0); Mean Platelet Volume 10.5 fL (7.4-10.4); Platelet Count 110 thou/uL (130-400); RBC Distribution Width 12.1 % (11.5-14.5); White Blood Cell (WBC) Count 14.7 thou/uL (4.8-10.8)
[2022-03-06 08:50] LABS: ALT (SGPT) 48 U/L (8-55); AST (SGOT) 20 U/L (5-34); Albumin 3.7 g/dL (3.5-5.0); Alkaline Phosphatase 66 U/L (40-110); Anion Gap 14 mmol/L (10-20); BUN (Urea Nitrogen) 7 mg/dL (8.9-20.6); Bilirubin, Total 0.7 mg/dL (0.2-1.2); Calc. Creatinine Clearance 103 mL/min (70-130); Calcium 9.2 mg/dL (7.8-10.44); Carbon Dioxide 25 mmol/L (22-29); Chloride 105 mmol/L (98-107); Estimated GFR 85; Glucose 106 mg/dL (70-105); Potassium 3.9 mmol/L (3.5-5.1); Protein, Total 6.7 g/dL (6.0-8.3); Sodium 140 mmol/L (136-145)
[2022-03-06] MEDS: VANCOMYCIN 1.25 GM/250 ML BAG 1.25 GM in Premix Bag 1 BAG IVPB SCH ×2 (08:51→21:36)
[2022-03-06] MEDS: levETIRAcetam 500 MG TAB PO SCH ×2 (08:52→20:54)
[2022-03-06] MEDS: Benztropine 1 MG TAB PO SCH (08:52)
[2022-03-06] MEDS: Enoxaparin Sodium 40 MG/0.4 ML SYRINGE SC SCH (08:52)
[2022-03-06] MEDS: Acetaminophen 325 MG TAB PO PRN (09:00)
[2022-03-06] MEDS ORDERED: HYDROcodone/Acetaminophen 5/325 mg Tablet PO SCH (10:00)
[2022-03-06] MEDS: HYDROcodone/Acetaminophen 5/325 mg Tablet PO SCH (20:54)
[2022-03-06] MEDS: Mirtazapine 15 MG TAB PO SCH (20:54)
[2022-03-07] MEDS: Piperacillin/Tazobactam 3.375 GM in Sodium Chloride 0.9% 100 ML IVPB SCH (04:56)
[2022-03-07 06:50] LABS: #Eosinphils 0.2 thou/uL (0.0-0.7); #Lymphocytes 2.1 thou/uL (1.20-3.40); #Monocytes 0.8 thou/uL (0.11-0.59); #Neutrophils 8.8 thou/uL (1.40-6.50); %Basophils 0.3 % (0.0-1.0); %Eosinophils 1.6 % (0.0-10.0); %Lymphocytes 17.5 % (21.0-51.0); %Monocytes 6.3 % (0.0-10.0); %Neutrophils 74.3 % (42.0-75.0); Hemoglobin 14.3 g/dL (14.0-18.0); Mean Corpuscular HGB CONC 33.2 g/dL (32.0-36.0); Mean Corpuscular Hemoglobin 33.4 pg (27.0-31.0); Mean Platelet Volume 10.4 fL (7.4-10.4); Platelet Count 118 thou/uL (130-400); Red Blood Cell (RBC) Count 4.27 mill/uL (4.70-6.10); White Blood Cell (WBC) Count 11.9 thou/uL (4.8-10.8)
[2022-03-07 08:22] VITALS: BP 113/73; TEMP 97.9
[2022-03-07] MEDS: VANCOMYCIN 1.25 GM/250 ML BAG 1.25 GM in Premix Bag 1 BAG IVPB SCH (08:41)
[2022-03-07] MEDS: Benztropine 1 MG TAB PO SCH (08:41)
[2022-03-07] MEDS: Acetaminophen 325 MG TAB PO PRN (08:41)
[2022-03-07] MEDS: levETIRAcetam 500 MG TAB PO SCH (08:44)
[2022-03-07] MEDS: Enoxaparin Sodium 40 MG/0.4 ML SYRINGE SC SCH (08:44)
[2022-03-07] MEDS ORDERED: Gabapentin 300 MG CAP PO SCH ×2 (11:45→15:00)
[2022-03-07] MEDS ORDERED: HYDROcodone/Acetaminophen 5/325 mg Tablet PO SCH (12:45)
[2022-03-07] MEDS ORDERED: Non-Formulary Item 1 EACH (Gabapentin [Gabapentin] 600 MG Tablet) PO SCH (15:00)
[2022-03-07] MEDS ORDERED: metroNIDAZOLE 500 MG TAB PO SCH (21:00)
[2022-03-07] MEDS ORDERED: Doxycycline 100 MG CAP PO SCH (21:00)
== END 2022-03-07 15:19 | disposition home or self-care (01) | DRG 872 ==
LOC: ERS 21:10 → T4-B 22:19
PROVIDERS: ADMIT Family Medicine; ATTEND Family Medicine
DX: A41.9 Sepsis, unspecified organism (principal); L03.116 Cellulitis of left lower limb; Z20.822 Contact with and (suspected) exposure to COVID-19; F17.210 Nicotine dependence, cigarettes, uncomplicated; G40.909 Epilepsy, unspecified, not intractable, without status epilepticus; F20.9 Schizophrenia, unspecified; F41.9 Anxiety disorder, unspecified; G89.29 Other chronic pain; G47.00 Insomnia, unspecified; Z88.1 Allergy status to other antibiotic agents; Z88.5 Allergy status to narcotic agent; Z79.899 Other long term (current) drug therapy
CPT/HCPCS: 36415; 80053; 80177; 80202; 82565; 83036; 83605; 85025; 87040; 96365; 96367; 96375; 97139; J1650; J2270; J2543; J3370; J3490; J7120; U0003; U0005

== ENCOUNTER 2023-01-27 09:36 | Emergency (ER) | payer OTHER ==
[2023-01-27] MEDS ORDERED: Acetaminophen 500 MG TAB ONE (10:36)
== END 2023-01-27 11:03 | disposition home or self-care (01) ==
LOC: ERS 09:36
DX: M54.16 Radiculopathy, lumbar region (principal); F17.210 Nicotine dependence, cigarettes, uncomplicated; G20 Parkinson's disease; Z79.899 Other long term (current) drug therapy
CPT/HCPCS: 72100

== ENCOUNTER 2023-09-21 12:52 | Outpatient (CLI) | payer OTHER | END 2023-09-21 12:53 | disposition home or self-care (01) | LOC: RAD 12:52 | PROVIDERS: ATTEND Internal Medicine Critical Care Medicine | DX: R06.00 Dyspnea, unspecified (principal) | CPT/HCPCS: 71046 ==